=== PATIENT | male | born 1930 | race Caucasian/White ===

== ENCOUNTER 2018-02-01 14:51 | Inpatient (IN) | payer MEDICARE, BC ==
[2018-02-01 15:23] LABS: BASOPHILS % (AUTO) 1 % (0-3); EOSINOPHILS % (AUTO) 0 % (0-9); HEMATOCRIT 39 % (39-53); HEMOGLOBIN 12.3 gm/dl (13.5-17.7); MEAN CORPUSCULAR HEMOGLOBIN 30.7 pg (27.0-32.0); MEAN CORPUSCULAR HGB CONC 31.7 gm/dl (32.0-36.0); MEAN CORPUSCULAR VOLUME 97 fL (80-100); MONOCYTES % (AUTO) 10.6 % (0-12); NEUTROPHILS % (AUTO) 76.5 % (37-80)
[2018-02-01] MEDS ORDERED: SODIUM CHLORIDE 0.9% FLUSH 10 ML SOL IV PRN (15:25)
[2018-02-01] MEDS ORDERED: ACETAMINOPHEN 325 MG PO ONE (15:27)
[2018-02-01] MEDS ORDERED: ACETAMINOPHEN 325 MG ONE (15:30)
[2018-02-01 15:35] LABS: BLOOD UREA NITROGEN 23 mg/dl (7-18); CALCIUM 8.4 mg/dl (8.5-10.1); CARBON DIOXIDE 26.3 mEq/L (21-32); CHLORIDE 106 mMol/L (98-107); CREATININE 1.83 mg/dl (0.80-1.30); CRP INFLAMMATORY 11.66 mg/dl (0.00-0.33); GLOM FILT RATE 35 mL/min (>60); GLUCOSE 159 mg/dl (74-106); POTASSIUM 4.3 mMol/L (3.5-5.1); SODIUM 140 mMol/L (136-145)
[2018-02-01 15:38] LABS: LACTIC ACID 3.7 mMol/L (0.0-2.0)
[2018-02-01 15:39] LABS: INR 0.98 (0.86-1.12)
[2018-02-01 16:01] LABS: TROP I < 0.017 ng/ml (0.000-0.056)
[2018-02-01] MEDS ORDERED: SODIUM CHLORIDE 0.9% 50 ML 25 ML IV PRN (16:14)
[2018-02-01] MEDS ORDERED: SODIUM CHLORIDE 0.9% 1000ML 1,000 ML IV ONE (16:14)
[2018-02-01] MEDS ORDERED: CEFTRIAXONE 1 GM PDS 1 GM in SODIUM CHLORIDE 0.9% 50 ML 50 ML IV ONE (16:14)
[2018-02-01] MEDS ORDERED: CEFTRIAXONE 1 GM PDS ONE (16:29)
[2018-02-01 19:17] LABS: APPEARANCE,URINE Clear; BILIRUBIN,URINE NEGATIVE (NEGATIVE); COLOR,URINE Dark yellow; GLUCOSE, URINE (UA) NEGATIVE (NEGATIVE); KETONES,URINE NEGATIVE (NEGATIVE); LEUKOCYTE ESTERASE ,URINE NEGATIVE (NEGATIVE); NITRATE,URINE NEGATIVE (NEGATIVE); OCCULT BLOOD,URINE NEGATIVE (NEG-TRACE)
[2018-02-01 19:26] LABS: BACTERIA NEGATIVE (< 1+); CRYSTALS NEGATIVE (0-3 AVE/HPF); EPITHELIAL CELLS 0-3 (SQUAMOUS); RBC,URINE 0-1 (0-3AV/HPF); WBC,URINE 0-2 (0-5AV/HPF)
[2018-02-01] MEDS: ATORVASTATIN 10 MG TAB PO SCH (21:36)
[2018-02-01] MEDS: AZITHROMYCIN 250 MG TAB PO SCH (21:36)
[2018-02-01] MEDS: ACETAMINOPHEN 325 MG PO PRN (22:07)
[2018-02-02] MEDS: SODIUM CHLORIDE 0.9% 1000ML 1,000 ML IV SCH (01:00)
[2018-02-02] MEDS: ACETAMINOPHEN 325 MG PO PRN ×3 (06:36→21:19)
[2018-02-02 07:22] LABS: LACTIC ACID 1.4 mMol/L (0.0-2.0)
[2018-02-02 07:30] LABS: CALCIUM 7.9 mg/dl (8.5-10.1); CARBON DIOXIDE 29.1 mEq/L (21-32); CREATININE 1.52 mg/dl (0.80-1.30); POTASSIUM 3.9 mMol/L (3.5-5.1)
[2018-02-02 07:58] LABS: BASOPHILS % (AUTO) 1 % (0-3); EOSINOPHILS % (AUTO) 2 % (0-9); HEMATOCRIT 35 % (39-53); HEMOGLOBIN 11.3 gm/dl (13.5-17.7); LYMPHOCYTES % (AUTO) 21.15 % (10-50); MEAN CORPUSCULAR HEMOGLOBIN 31.2 pg (27.0-32.0); MEAN CORPUSCULAR HGB CONC 32.3 gm/dl (32.0-36.0); MEAN CORPUSCULAR VOLUME 97 fL (80-100); MONOCYTES % (AUTO) 11.6 % (0-12); NEUTROPHILS % (AUTO) 64.2 % (37-80)
[2018-02-02] MEDS: ASPIRIN EC 81 MG PO SCH (08:36)
[2018-02-02] MEDS: FUROSEMIDE 40 MG TAB PO SCH (08:36)
[2018-02-02] MEDS: CETIRIZINE HYDROCHLORIDE 10 MG TAB PO SCH (08:36)
[2018-02-02] MEDS: AZITHROMYCIN 250 MG TAB PO SCH (08:41)
[2018-02-02] MEDS ORDERED: POTASSIUM CHLORIDE 10 MEQ CAPSULE PO SCH (09:00)
[2018-02-02] MEDS ORDERED: SODIUM CHLORIDE 0.9% 50 ML 50 ML IV ONE (09:06)
[2018-02-02] MEDS ORDERED: CEFTRIAXONE 1 GM PDS ONE (09:06)
[2018-02-02] MEDS: CEFTRIAXONE 1 GM PDS 1 GM in SODIUM CHLORIDE 0.9% 50 ML 50 ML IV SCH (09:59)
[2018-02-02] MEDS: POTASSIUM CHLORIDE 10 MEQ TER PO SCH (10:45)
[2018-02-02] MEDS: ATORVASTATIN 10 MG TAB PO SCH (21:18)
[2018-02-03] MEDS: SODIUM CHLORIDE 0.9% 1000ML 1,000 ML IV SCH (00:11)
[2018-02-03] MEDS: ACETAMINOPHEN 325 MG PO PRN ×3 (02:10→15:18)
[2018-02-03] MEDS ORDERED: LIDOCAINE 1% W/EPI MPF 30 ML SOL ONE (08:11)
[2018-02-03] MEDS ORDERED: LIDOCAINE 1% W/EPI MPF 30 ML SOL SC ONE (08:30)
[2018-02-03] MEDS ORDERED: SODIUM CHLORIDE 0.9% 50 ML 50 ML IV ONE (09:13)
[2018-02-03] MEDS ORDERED: CEFTRIAXONE 1 GM PDS ONE (09:13)
[2018-02-03] MEDS: CEFTRIAXONE 1 GM PDS 1 GM in SODIUM CHLORIDE 0.9% 50 ML 50 ML IV SCH (09:23)
[2018-02-03] MEDS: POTASSIUM CHLORIDE 10 MEQ TER PO SCH (09:57)
[2018-02-03] MEDS: FUROSEMIDE 40 MG TAB PO SCH (09:57)
[2018-02-03] MEDS: ASPIRIN EC 81 MG PO SCH (09:57)
[2018-02-03] MEDS: CETIRIZINE HYDROCHLORIDE 10 MG TAB PO SCH (09:58)
[2018-02-03] MEDS: AZITHROMYCIN 250 MG TAB PO SCH (10:01)
[2018-02-03] MEDS: SODIUM CHLORIDE 0.9% FLUSH 10 ML SOL IV SCH (18:20)
[2018-02-03] MEDS: ATORVASTATIN 10 MG TAB PO SCH (21:23)
[2018-02-03 23:39] VITALS: RESP 16
[2018-02-04] MEDS: ACETAMINOPHEN 325 MG PO PRN (02:47)
[2018-02-04] MEDS: SODIUM CHLORIDE 0.9% FLUSH 10 ML SOL IV SCH ×2 (02:48→09:08)
[2018-02-04] MEDS: FUROSEMIDE 40 MG TAB PO SCH (08:36)
[2018-02-04] MEDS: ASPIRIN EC 81 MG PO SCH (08:36)
[2018-02-04] MEDS: POTASSIUM CHLORIDE 10 MEQ TER PO SCH (08:36)
[2018-02-04] MEDS: CETIRIZINE HYDROCHLORIDE 10 MG TAB PO SCH (08:37)
[2018-02-04 08:39] VITALS: BP 106/62; PULSE 94; TEMP 98.1; O2SAT 93
[2018-02-04] MEDS ORDERED: SODIUM CHLORIDE 0.9% 50 ML 50 ML IV ONE (09:01)
[2018-02-04] MEDS ORDERED: CEFTRIAXONE 1 GM PDS ONE (09:01)
[2018-02-04] MEDS: CEFTRIAXONE 1 GM PDS 1 GM in SODIUM CHLORIDE 0.9% 50 ML 50 ML IV SCH (09:08)
== END 2018-02-04 14:20 | disposition home or self-care (01) | DRG 195 ==
LOC: ED 14:51 → UNDOADMIN 16:28 → ACUTE CARE 16:28
PROVIDERS: ADMIT Family Medicine; ATTEND Family Medicine
PROC: F01L5YZ Range of Motion and Joint Integrity Assessment of Musculoskeletal System - Lower Back / Lower Extremity using Other Equipment (ICD-10-PCS; principal; 2018-02-02)
PROC: F01ZDFZ Gait and/or Balance Assessment using Assistive, Adaptive, Supportive or Protective Equipment (ICD-10-PCS; 2018-02-02)
PROC: F02Z3ZZ Grooming/Personal Hygiene Assessment (ICD-10-PCS; 2018-02-03)
PROC: F02Z2ZZ Feeding/Eating Assessment (ICD-10-PCS; 2018-02-03)
DX: M25.561 Pain in right knee (principal); J18.9 Pneumonia, unspecified organism; F03.90 Unspecified dementia, unspecified severity, without behavioral disturbance, psychotic disturbance, mood disturbance, and anxiety; M00.9 Pyogenic arthritis, unspecified; M25.461 Effusion, right knee; W19.XXXA Unspecified fall, initial encounter; G30.1 Alzheimer's disease with late onset; F02.80 Dementia in other diseases classified elsewhere, unspecified severity, without behavioral disturbance, psychotic disturbance, mood disturbance, and anxiety
CPT/HCPCS: 36415; 71045; 71046; 73560; 80048; 81001; 83880; 84484; 84550; 85025; 85610; 87040; 93005; 99070; 99222; 99231; 99284; J0696; A9270; A9270-GY

== ENCOUNTER 2018-09-12 22:10 | Inpatient (IN) | payer MEDICARE, BC ==
[2018-09-12 22:25] LABS: BASOPHILS % (AUTO) 1 % (0-3); EOSINOPHILS % (AUTO) 4 % (0-9); HEMATOCRIT 39 % (39-53); HEMOGLOBIN 12.3 gm/dl (13.5-17.7); LYMPHOCYTES % (AUTO) 38.5 % (10-50); MEAN CORPUSCULAR HEMOGLOBIN 31.5 pg (27.0-32.0); MEAN CORPUSCULAR HGB CONC 31.9 gm/dl (32.0-36.0); MONOCYTES % (AUTO) 7.7 % (0-12); NEUTROPHILS % (AUTO) 49.1 % (37-80)
[2018-09-12 22:28] LABS: MEAN CORPUSCULAR VOLUME 99 fL (80-100)
[2018-09-12] MEDS ORDERED: SODIUM CHLORIDE 0.9% 1000ML 1,000 ML IV ONE (22:29)
[2018-09-12 22:45] LABS: ALBUMIN 3.2 gm/dl (3.4-5.0); BILIRUBIN,TOTAL 0.6 mg/dl (0.2-1.0); CALCIUM 8.8 mg/dl (8.5-10.1); CREATININE 2.58 mg/dl (0.80-1.30); POTASSIUM 3.8 mMol/L (3.5-5.1); TOTAL PROTEIN 7.1 gm/dl (6.4-8.2); TROP I 0.018 ng/ml (0.000-0.056)
[2018-09-12] MEDS ORDERED: SODIUM CHLORIDE 0.45% 1000 ML 1,000 ML with POTASSIUM CHLORIDE 2 MEQ/ML 20 MEQ IV SCH (23:30)
[2018-09-13] MEDS ORDERED: POTASSIUM CHLORIDE 2 MEQ/ML SOL IV ONE
[2018-09-13] MEDS: APAP/HYDROCODONE 1 EACH TABLET PO PRN ×2 (00:39→01:55)
[2018-09-13] MEDS ORDERED: ENOXAPARIN 30 MG SOL SC SCH (02:00)
[2018-09-13 07:25] LABS: BASOPHILS % (AUTO) 1 % (0-3); EOSINOPHILS % (AUTO) 2 % (0-9); HEMATOCRIT 33 % (39-53); HEMOGLOBIN 10.5 gm/dl (13.5-17.7); LYMPHOCYTES % (AUTO) 20.7 % (10-50); MEAN CORPUSCULAR HEMOGLOBIN 31.1 pg (27.0-32.0); MEAN CORPUSCULAR VOLUME 97 fL (80-100); MONOCYTES % (AUTO) 8.4 % (0-12); NEUTROPHILS % (AUTO) 68.4 % (37-80)
[2018-09-13 07:37] LABS: CARBON DIOXIDE 27.8 mEq/L (21-32); POTASSIUM 4.8 mMol/L (3.5-5.1); TROP I 0.254 ng/ml (0.000-0.056)
[2018-09-13] MEDS ORDERED: NITROGLYCERIN 0.4 MG TAB SL PRN (07:59)
[2018-09-13] MEDS ORDERED: ASPIRIN 81 MG CHEWABLE CTB PO ONE (07:59)
[2018-09-13] MEDS ORDERED: SODIUM CHLORIDE 0.45% IV SCH (08:00)
[2018-09-13] MEDS ORDERED: MORPHINE SULFATE 10 MG/ML SOL ONE (08:20)
[2018-09-13] MEDS ORDERED: MORPHINE SULFATE 10 MG/ML SOL IV STA (08:25)
[2018-09-13 08:47] VITALS: BP 102/60; PULSE 80; RESP 20; TEMP 98.4; O2SAT 93
[2018-09-13] MEDS ORDERED: HEPARIN SODIUM 5000 U/ML SOL IV ONE (08:50)
[2018-09-13] MEDS ORDERED: HEPARIN SODIUM 5000 U/ML SOL ONE ×3 (08:58→08:59)
[2018-09-13] MEDS ORDERED: ASPIRIN EC 81 MG PO SCH (09:00)
[2018-09-13] MEDS ORDERED: ENOXAPARIN 40 MG SOL SC SCH (09:00)
[2018-09-13] MEDS ORDERED: HEPARIN PREMIX 25,000 U/250 ML SOL IV SCH (09:00)
[2018-09-13] MEDS ORDERED: ALLOPURINOL 100 MG TAB PO SCH (09:00)
[2018-09-13] MEDS ORDERED: METFORMIN HYDROCHLORIDE 500 MG TAB PO SCH (09:00)
[2018-09-13 09:47] LABS: INR 1.08 (0.86-1.12)
[2018-09-13] MEDS ORDERED: ATORVASTATIN 10 MG TAB PO SCH (21:00)
[2018-09-13] MEDS ORDERED: CETIRIZINE HYDROCHLORIDE 10 MG TAB PO SCH (21:00)
== END 2018-09-13 10:00 | disposition short-term general hospital (02) | DRG 312 ==
LOC: ED 22:10 → ACUTE CARE 23:14
PROVIDERS: ADMIT Family Medicine; ATTEND Family Medicine
DX: R55 Syncope and collapse (principal); N18.4 Chronic kidney disease, stage 4 (severe); W19.XXXA Unspecified fall, initial encounter; G30.1 Alzheimer's disease with late onset; E11.9 Type 2 diabetes mellitus without complications; F02.80 Dementia in other diseases classified elsewhere, unspecified severity, without behavioral disturbance, psychotic disturbance, mood disturbance, and anxiety; E11.22 Type 2 diabetes mellitus with diabetic chronic kidney disease; R07.9 Chest pain, unspecified
CPT/HCPCS: 36415; 71045; 80048; 80053; 80307; 82962; 84484; 85025; 85610; 85730; 93005; 93012; 96365; 99222; 99239; 99285; J1644; J1650; J2270; J3480; A9270-GY

== ENCOUNTER 2018-09-19 12:22 | Inpatient (IN) | payer MEDICARE, BC ==
[2018-09-19] MEDS ORDERED: CARBOXYMETHYLCELLULOSE SODIUM OP PRN (17:45)
[2018-09-19] MEDS ORDERED: FUROSEMIDE 20 MG TAB PO SCH (17:45)
[2018-09-19] MEDS: ATORVASTATIN 10 MG TAB PO SCH (20:28)
[2018-09-19] MEDS: QUETIAPINE FUMARATE 25 MG TAB PO PRN (20:28)
[2018-09-19] MEDS: ACETAMINOPHEN 500 MG 500 MG TAB PO PRN (20:28)
[2018-09-19] MEDS: METFORMIN HYDROCHLORIDE 500 MG TAB PO SCH (20:29)
[2018-09-19] MEDS ORDERED: CETIRIZINE PO SCH (21:00)
[2018-09-20] MEDS: ACETAMINOPHEN 500 MG 500 MG TAB PO PRN ×3 (03:02→21:16)
[2018-09-20] MEDS ORDERED: CETIRIZINE HYDROCHLORIDE 10 MG TAB PO ONE (09:20)
[2018-09-20] MEDS: ASPIRIN EC 81 MG PO SCH (09:25)
[2018-09-20] MEDS: ALLOPURINOL 100 MG TAB PO SCH (09:25)
[2018-09-20] MEDS: MULTIVITAMIN2 1 EA TAB PO SCH (09:25)
[2018-09-20] MEDS: LIDOCAINE 5% PATCH 1 PATCH TDM TOP SCH (09:26)
[2018-09-20] MEDS: FUROSEMIDE 20 MG TAB PO SCH (09:26)
[2018-09-20] MEDS ORDERED: PEG-400/PROPYLENE GLYCOL 1 DROP SOL OP PRN (16:15)
[2018-09-20] MEDS: METFORMIN HYDROCHLORIDE 500 MG TAB PO SCH (21:13)
[2018-09-20] MEDS: ATORVASTATIN 10 MG TAB PO SCH (21:13)
[2018-09-20] MEDS: QUETIAPINE FUMARATE 25 MG TAB PO PRN (21:13)
[2018-09-20] MEDS: CETIRIZINE HYDROCHLORIDE 10 MG TAB PO SCH (21:14)
[2018-09-21] MEDS: ACETAMINOPHEN 500 MG 500 MG TAB PO PRN ×2 (07:13→20:28)
[2018-09-21] MEDS: LIDOCAINE 5% PATCH 1 PATCH TDM TOP SCH (08:10)
[2018-09-21] MEDS: ALLOPURINOL 100 MG TAB PO SCH (08:10)
[2018-09-21] MEDS: ASPIRIN EC 81 MG PO SCH (08:10)
[2018-09-21] MEDS: MULTIVITAMIN2 1 EA TAB PO SCH (08:10)
[2018-09-21] MEDS: QUETIAPINE FUMARATE 25 MG TAB PO PRN (20:28)
[2018-09-21] MEDS: ATORVASTATIN 10 MG TAB PO SCH (20:28)
[2018-09-21] MEDS: CETIRIZINE HYDROCHLORIDE 10 MG TAB PO SCH (20:28)
[2018-09-21] MEDS: METFORMIN HYDROCHLORIDE 500 MG TAB PO SCH (20:29)
[2018-09-22] MEDS: ACETAMINOPHEN 500 MG 500 MG TAB PO PRN ×2 (05:46→14:16)
[2018-09-22] MEDS: ASPIRIN EC 81 MG PO SCH (09:30)
[2018-09-22] MEDS: MULTIVITAMIN2 1 EA TAB PO SCH (09:31)
[2018-09-22] MEDS: FUROSEMIDE 20 MG TAB PO SCH (09:31)
[2018-09-22] MEDS: LIDOCAINE 5% PATCH 1 PATCH TDM TOP SCH (09:32)
[2018-09-22] MEDS: ALLOPURINOL 100 MG TAB PO SCH (09:32)
[2018-09-22] MEDS: ATORVASTATIN 10 MG TAB PO SCH (21:17)
[2018-09-22] MEDS: METFORMIN HYDROCHLORIDE 500 MG TAB PO SCH (21:18)
[2018-09-22] MEDS: CETIRIZINE HYDROCHLORIDE 10 MG TAB PO SCH (21:20)
[2018-09-23] MEDS: ACETAMINOPHEN 500 MG 500 MG TAB PO PRN ×2 (06:25→22:42)
[2018-09-23 07:19] LABS: BASOPHILS % (AUTO) 1 % (0-3); EOSINOPHILS % (AUTO) 5 % (0-9); HEMATOCRIT 30 % (39-53); HEMOGLOBIN 9.6 gm/dl (13.5-17.7); LYMPHOCYTES % (AUTO) 26.1 % (10-50); MEAN CORPUSCULAR HEMOGLOBIN 31.1 pg (27.0-32.0); MEAN CORPUSCULAR HGB CONC 31.6 gm/dl (32.0-36.0); MONOCYTES % (AUTO) 8.5 % (0-12); NEUTROPHILS % (AUTO) 59.8 % (37-80)
[2018-09-23 07:24] LABS: MEAN CORPUSCULAR VOLUME 99 fL (80-100)
[2018-09-23 07:28] LABS: CALCIUM 8.5 mg/dl (8.5-10.1); CARBON DIOXIDE 27.2 mEq/L (21-32); CREATININE 1.09 mg/dl (0.80-1.30); POTASSIUM 3.8 mMol/L (3.5-5.1)
[2018-09-23] MEDS: MULTIVITAMIN2 1 EA TAB PO SCH (08:48)
[2018-09-23] MEDS: ASPIRIN EC 81 MG PO SCH (08:48)
[2018-09-23] MEDS: LOSARTAN POTASSIUM 50 MG TAB PO SCH (10:09)
[2018-09-23] MEDS: ALLOPURINOL 100 MG TAB PO SCH (10:11)
[2018-09-23] MEDS: LIDOCAINE 5% PATCH 1 PATCH TDM TOP SCH (10:41)
[2018-09-23] MEDS: CETIRIZINE HYDROCHLORIDE 10 MG TAB PO SCH (20:50)
[2018-09-23] MEDS: ATORVASTATIN 10 MG TAB PO SCH (20:50)
[2018-09-23] MEDS: METFORMIN HYDROCHLORIDE 500 MG TAB PO SCH (20:50)
[2018-09-24 07:32] VITALS: TEMP 97.8
[2018-09-24] MEDS: ASPIRIN EC 81 MG PO SCH (09:02)
[2018-09-24] MEDS: LOSARTAN POTASSIUM 50 MG TAB PO SCH (09:02)
[2018-09-24] MEDS: LIDOCAINE 5% PATCH 1 PATCH TDM TOP SCH (09:03)
[2018-09-24] MEDS: FUROSEMIDE 20 MG TAB PO SCH (09:03)
[2018-09-24] MEDS: ALLOPURINOL 100 MG TAB PO SCH (09:03)
[2018-09-24] MEDS: MULTIVITAMIN2 1 EA TAB PO SCH (09:03)
[2018-09-24] MEDS: ACETAMINOPHEN 500 MG 500 MG TAB PO PRN ×3 (09:03→21:58)
[2018-09-24] MEDS: ATORVASTATIN 10 MG TAB PO SCH (20:55)
[2018-09-24] MEDS: METFORMIN HYDROCHLORIDE 500 MG TAB PO SCH (20:55)
[2018-09-24] MEDS: CETIRIZINE HYDROCHLORIDE 10 MG TAB PO SCH (20:57)
[2018-09-24] MEDS: QUETIAPINE FUMARATE 25 MG TAB PO PRN (22:55)
[2018-09-25] MEDS: ACETAMINOPHEN 500 MG 500 MG TAB PO PRN ×2 (06:03→13:22)
[2018-09-25 07:58] VITALS: BP 149/69; PULSE 82; RESP 16; O2SAT 93
[2018-09-25] MEDS: MULTIVITAMIN2 1 EA TAB PO SCH (09:42)
[2018-09-25] MEDS: ALLOPURINOL 100 MG TAB PO SCH (09:42)
[2018-09-25] MEDS: LOSARTAN POTASSIUM 50 MG TAB PO SCH (09:42)
[2018-09-25] MEDS: ASPIRIN EC 81 MG PO SCH (09:42)
[2018-09-25] MEDS: LIDOCAINE 5% PATCH 1 PATCH TDM TOP SCH (09:43)
== END 2018-09-25 15:00 | disposition home or self-care (01) | DRG 281 ==
LOC: ACUTE CARE 14:41
PROVIDERS: ADMIT Family Medicine; ATTEND Family Medicine
PROC: F01K5ZZ Range of Motion and Joint Integrity Assessment of Musculoskeletal System - Upper Back / Upper Extremity (ICD-10-PCS; principal; 2018-09-22)
PROC: F01K0ZZ Muscle Performance Assessment of Musculoskeletal System - Upper Back / Upper Extremity (ICD-10-PCS; 2018-09-22)
PROC: F02Z1ZZ Dressing Assessment (ICD-10-PCS; 2018-09-22)
DX: I21.4 Non-ST elevation (NSTEMI) myocardial infarction (principal); G93.40 Encephalopathy, unspecified; N18.4 Chronic kidney disease, stage 4 (severe); R55 Syncope and collapse; E11.22 Type 2 diabetes mellitus with diabetic chronic kidney disease; I12.9 Hypertensive chronic kidney disease with stage 1 through stage 4 chronic kidney disease, or unspecified chronic kidney disease; R79.89 Other specified abnormal findings of blood chemistry; I25.10 Atherosclerotic heart disease of native coronary artery without angina pectoris; D64.9 Anemia, unspecified; G30.0 Alzheimer's disease with early onset; F02.80 Dementia in other diseases classified elsewhere, unspecified severity, without behavioral disturbance, psychotic disturbance, mood disturbance, and anxiety; S31.000A Unspecified open wound of lower back and pelvis without penetration into retroperitoneum, initial encounter
CPT/HCPCS: 36415; 80048; 82962; 85025; A4450; A6232; A9270-GY